=== PATIENT | male | born 1980 | race African-American/Black ===

== ENCOUNTER 2020-02-07 05:48 | Emergency (ER) | payer SELFPAY ==
[~2020-02-07] VITALS: Ht 175.3 cm; Wt 89.0 kg
[2020-02-07 05:55] VITALS: BP 155/103
--- NOTE | 2020-02-07 06:12 | PHYS DOC ---
General Adult EDM: Chief Complaint: SEXUALLY TRANSMITTED DISEASE HPI: HPI: 39 yo AA M who denies any past medical history, presents the ED with complaints of exposure to trichomonas, female sexual partner tested positive for this. Denies any past history of sexually transmitted diseases. Patient denies any active symptoms but upon review of systems does report increased urinary urgency. Denies any genital rash, urethral discharge, penile/scrotal ttp/swelling, dysuria or hematuria. Review of Systems: Review of Systems: Constitutional: Denies fever or chills Eyes: Denies change in visual acuity HENT: Denies nasal congestion or sore throat Respiratory: Denies cough or shortness of breath Cardiovascular: Denies chest pain or edema GI: Denies abdominal pain, nausea, vomiting, bloody stools or diarrhea : Denies dysuria or hematuria Musculoskeletal: Denies back pain or joint pain Integument: Denies rash Neurologic: Denies headache, focal weakness or sensory changes Endocrine: Denies polyuria or polydipsia Lymphatic: Denies swollen glands Psychiatric: Denies depression or anxiety Heart Score: Risk Factors: Risk Factors: DM, Current or recent (<one month) smoker, HTN, HLP, family history of CAD, obesity. Risk Scores: Score 0 - 3: 2.5% MACE over next 6 weeks - Discharge Home Score 4 - 6: 20.3% MACE over next 6 weeks - Admit for Clinical Observation Score 7 - 10: 72.7% MACE over next 6 weeks - Early Invasive Strategies Physical Exam: PE: Constitutional: Well developed, well nourished, no acute distress, non-toxic appearance. [] HENT: Normocephalic, atraumatic, bilateral external ears normal, oropharynx moist, no oral exudates, nose normal. [] Eyes: EOMI, conjunctiva normal, no discharge. [] Neck: Normal range of motion, supple, no stridor. [] Cardiovascular: S1 and S2 present Lungs & Thorax: Bilateral equal chest rise, speaking in full sentences Skin: Warm, dry, no erythema, no rash. [] Back: No tenderness, no CVA tenderness. [] Extremities: No tenderness, no cyanosis, no clubbing, ROM intact, no edema. [] Neurologic: Alert and oriented X 3, normal motor function, normal sensory function, no focal deficits noted. [] Psychologic: Affect normal, judgement normal, mood normal. [] EKG: EKG: [] Radiology/Procedures: Radiology/Procedures: [] Course & Med Decision Making: Course & Med Decision Making Pertinent Labs and Imaging studies reviewed. (See chart for details) Encounter for STI testing. I performed MSE-pt HD stable with no abdominal/back pain or rash. Concerned for STI. I recommended U/A, GC culture and wet prep to test for trich along with empiric GC tx. Pt with no apparent life/limb threatening illness. Pt has no insurance or pcp. Pt is a self pay and after registration asked for a copay, pt was seen eloping from the ed. Pt refusing full medical assessment/treatment, pt has [facility]. Pt educated that if infection went untreated he could develop life threatening sepsis, septic arthritis, could result in . Pt still refused treatment due to financial reasons. Mir Disclaimer: Mir Disclaimer: This electronic medical record was generated, in whole or in part, using a voice recognition dictation system. Departure Departure: Impression: Primary Impression: Encounter for screening examination for sexually transmitted disease Disposition: HOME/RESIDENCE PRIOR TO ADM (pt eloped from ed without notifying staff, refused copay) Condition: STABLE Referrals: PCP,NO (PCP) OSBALDO VELASQUEZ DO Feb 07, 2020 06:12
== END 2020-02-07 07:27 | disposition home or self-care (01) ==
LOC: ER 05:48
DX: Z20.2 Contact with and (suspected) exposure to infections with a predominantly sexual mode of transmission (principal)
CPT/HCPCS: 99281